=== PATIENT | male | born 1995 | race Caucasian/White ===

== ENCOUNTER 2018-01-06 14:45 | Emergency (ER) | payer OTHER ==
[~2018-01-06] VITALS: Ht 180.3 cm; Wt 70.3 kg
[2018-01-06 14:49] VITALS: Ht 180.3 cm; Wt 70.3 kg
[2018-01-06 16:42] LABS: microscopic required? NO
[2018-01-06 16:43] LABS: RED CELL DISTRIBUTION WIDTH 12.6 % (11.5-14.5)
[2018-01-06 16:45] LABS: BASOPHIL % 0 % (0-2); PLATELET COUNT 106 x10^3mcL (130-400)
[2018-01-06 16:46] LABS: CARBON DIOXIDE 21.9 mmol/L (21-32); CHLORIDE SERUM 106 mmol/L (98-107); GFR1 > 60 mL/min; GLUCOSE SERUM 77 mg/dL (74-106); POTASSIUM SERUM 3.4 mmol/L (3.5-5.1); SODIUM SERUM 143 mmol/L (136-145)
[2018-01-06 16:53] LABS: ALBUMIN 4.2 g/dL (3.4-5.0); ALKALINE PHOSPHATASE 60 U/L (46-116); ALT/SGPT 23 U/L (16-63); AST/SGOT 26 U/L (15-37); BILIRUBIN TOTAL 0.98 mg/dL (0.20-1.00); HDL CHOLESTEROL 52 mg/dL (40-60); LIPASE 99 IU/L (73-393); TOTAL PROTEIN, SERUM 7.2 g/dL (6.4-8.2); TRIGLYCERIDES 49 mg/dL (<150)
[2018-01-06 16:53] LABS: UA SPECIFIC GRAVITY >=1.030 (1.005-1.035); urine erythrocyte NEGATIVE (NEGATIVE)
[2018-01-06 16:55] LABS: FREE T4 1.78 ng/dL (0.76-1.46); FREE THYROXINE INDEX 3.8 ug/dL (1.4-4.5); T4(THYROXINE) 9.7 ug/dL (4.7-13.3)
[2018-01-06 17:01] LABS: CHOLESTEROL 95 mg/dL (<200); CHOLESTEROL/HDL RATIO 1.8
[2018-01-06 17:11] LABS: AMPHETAMINE QUAL UR NONE DETECTED (See below)
[2018-01-06 18:00] LABS: T3 TOTAL 1.05 ng/mL
[2018-01-06 20:01] VITALS: BP 129/63
== END 2018-01-06 20:01 | disposition home or self-care (01) ==
LOC: ED 14:45
PROVIDERS: Specialist
DX: F10.10 Alcohol abuse, uncomplicated (principal); D72.829 Elevated white blood cell count, unspecified; K52.9 Noninfective gastroenteritis and colitis, unspecified; R11.10 Vomiting, unspecified; R53.1 Weakness; T67.5XXA Heat exhaustion, unspecified, initial encounter; X58.XXXA Exposure to other specified factors, initial encounter; Y93.89 Activity, other specified; Y92.89 Other specified places as the place of occurrence of the external cause; Y99.8 Other external cause status
CPT/HCPCS: 83880; 84439; G0480; J0696; J3411; J3475; J3490; J7030; Q9967

== ENCOUNTER 2018-01-07 16:25 | Emergency (ER) | payer OTHER ==
[~2018-01-07] VITALS: Ht 180.3 cm; Wt 67.4 kg
[2018-01-07 16:48] VITALS: BP 130/74; Ht 180.3 cm; Wt 67.4 kg
== END 2018-01-07 18:52 | disposition left against medical advice (07) ==
LOC: ED 16:25
DX: Z53.21 Procedure and treatment not carried out due to patient leaving prior to being seen by health care provider (principal)